=== PATIENT | female | born 1985 | race American Indian/Alaskan Native ===

== ENCOUNTER 2021-11-01 19:01 | Emergency (ER) | payer MEDICAID ==
[2021-11-01 19:58] VITALS: BP 107/63
--- NOTE | 2021-11-01 20:56 | Emergency Department Report ---
ED General Adult HPI - General Chief complaint: Medical Clearance Stated complaint: LT BREAST PAIN Source: patient Mode of arrival: Ambulatory Limitations: No Limitations - History of Present Illness Initial comments: Patient is a A0 35-year-old -Cub[place] female who is approximately 15 weeks gestation presents to the ED with complaint of acute onset persistent painful, swollen, mild erythematous maculopapular rash on left breast for the last 2 weeks, worse in the last 4 days. Patient states that the pain is constant and persistent and that the swelling has worsened. She denies dizziness, syncope, fever, chills, nausea, vomiting, chest pain or shortness of breath or abdominal pain, traumatic injury, vaginal bleeding or vaginal discharge. MD Complaint: left breast swelling, pain erythematous rash -: week(s) (2) Location: chest (left breast) Radiation: non-radiation Severity scale (0 -10): 8 Quality: aching, sharp Consistency: constant Improves with: none Worsens with: none Associated Symptoms: denies other symptoms, rash (Painful, swollen, erythematous maculopapular rash on left breast). denies: confusion, chest pain, diaphoresis, fever/chills, headaches, loss of appetite, nausea/vomiting, seizure - Related Data Previous Rx's Medication Instructions Recorded Last Taken Type Acetaminophen [Tylenol] 500 mg PO Q6HR PRN #40 tablet 11/01/21 Unknown Rx Clindamycin [Clindamycin CAP] 300 mg PO Q6H #40 cap 11/01/21 Unknown Rx Allergies Allergy/AdvReac Type Severity Reaction Status Date / Time No Known Allergies Allergy Verified 11/01/21 19:59 ED Review of Systems ROS: Stated complaint: LT BREAST PAIN Other details as noted in HPI Constitutional: denies: chills, fever Eyes: denies: eye pain, eye discharge, vision change ENT: denies: ear pain, throat pain Respiratory: denies: cough, shortness of breath, wheezing Cardiovascular: denies: chest pain, palpitations Endocrine: no symptoms reported Gastrointestinal: denies: abdominal pain, nausea, vomiting, diarrhea Genitourinary: denies: urgency, dysuria, discharge Musculoskeletal: denies: back pain, joint swelling, arthralgia Skin: rash (Swollen, painful, mild erythematous maculopapular rash on left breast), change in color. denies: lesions, change in hair/nails, pruritus Neurological: denies: headache, weakness, paresthesias Psychiatric: denies: anxiety, depression Hematological/Lymphatic: denies: easy bleeding, easy bruising ED Past Medical Hx - Medications Home Medications: Home Medications Medication Instructions Recorded Confirmed Last Taken Type Acetaminophen [Tylenol] 500 mg PO Q6HR PRN #40 tablet 11/01/21 Unknown Rx Clindamycin [Clindamycin CAP] 300 mg PO Q6H #40 cap 11/01/21 Unknown Rx ED Physical Exam - General Limitations: No Limitations General appearance: alert, in no apparent distress - Head Head exam: Present: atraumatic, normocephalic, normal inspection - Eye Eye exam: Present: normal appearance, PERRL, EOMI Pupils: Present: normal accommodation - ENT ENT exam: Present: normal exam, normal orophraynx, mucous membranes moist, TM's normal bilaterally, normal external ear exam - Neck Neck exam: Present: normal inspection, full ROM. Absent: tenderness - Respiratory Respiratory exam: Present: normal lung sounds bilaterally, chest wall tenderness (Left-sided left breast pain due to erythematous maculopapular rash). Absent: respiratory distress, wheezes, rales, rhonchi, accessory muscle use, decreased breath sounds, prolonged expiratory - Cardiovascular Cardiovascular Exam: Present: normal rhythm, tachycardia, normal heart sounds. Absent: systolic murmur, diastolic murmur, rubs, gallop - GI/Abdominal GI/Abdominal exam: Present: soft, normal bowel sounds. Absent: tenderness, guarding, rebound, hyperactive bowel sounds, hypoactive bowel sounds, organomegaly, mass - Extremities Exam Extremities exam: Present: normal inspection, full ROM, normal capillary refill. Absent: tenderness, pedal edema, joint swelling - Back Exam Back exam: Present: normal inspection, full ROM. Absent: tenderness, CVA tenderness (R), CVA tenderness (L), muscle spasm, paraspinal tenderness, vertebral tenderness - Neurological Exam Neurological exam: Present: alert, oriented X3, CN II-XII intact, normal gait, reflexes normal - Psychiatric Psychiatric exam: Present: normal affect, normal mood - Skin Skin exam: Present: warm, dry, intact, rash (Swollen, mild erythematous maculopapular nonfluctuant tender rash on left breast), erythema. Absent: normal color ED Course Vital Signs 11/01/21 19:55 Temperature 98 F Pulse Rate 102 H Respiratory 18 Rate Blood Pressure 107/63 [Left] O2 Sat by Pulse 99 Oximetry ED Medical Decision Making - Medical Decision Making This is a A0 35-year-old -Cub[place] female who is approximately 15 weeks gestation presents to the ED with complaint of acute onset persistent painful, swollen, mild erythematous maculopapular rash on left breast for the last 2 weeks, worse in the last 4 days. Patient states that the pain is constant and persistent and that the swelling has worsened. In the ED, patient is alert and oriented x3 and is not in any distress. Patient is hemodynamically stable. Patient was discharged home on medications based on the history and physical exam findings of acute mastitis of the left breast or cellulitis of left breast. Patient was advised to follow-up with her primary care physician in 7 to 10 days for reevaluation or return to the ED immediately if symptoms get worse. - Differential Diagnosis Cellulitis; mastitis; cutaneous abscess; folliculitis Critical care attestation.: If time is entered above; I have spent that time in minutes in the direct care of this critically ill patient, excluding procedure time. ED Disposition Clinical Impression: Acute mastitis of left breast, Cellulitis of left breast Disposition: HOME / SELF CARE / HOMELESS Is pt being admited?: No Does the pt Need Aspirin: No Condition: Stable Instructions: Mastitis, [id number], Cellulitis, Adult, [id number] Additional Instructions: Take medication with food, drink plenty of fluids, follow-up with your primary care physician in 7 to 10 days for reevaluation. Return to the ED immediately if symptoms get worse. Prescriptions: Acetaminophen [Tylenol] 500 mg PO Q6HR PRN #40 tablet PRN Reason: Pain , Severe (7-10) Clindamycin [Clindamycin CAP] 300 mg PO Q6H #40 cap Referrals: [facility] [Provider Group] - 7-10 days Time of Disposition: 20:56 Print Language: INDONESIAN
== END 2021-11-01 21:34 | disposition home or self-care (01) ==
LOC: ED 19:01
DX: O91.212 Nonpurulent mastitis associated with pregnancy, second trimester (principal); O91.112 Abscess of breast associated with pregnancy, second trimester
CPT/HCPCS: 99283

== ENCOUNTER 2021-11-05 12:28 | Inpatient (IN) | payer MEDICAID ==
[2021-11-05] MEDS ORDERED: MAGNESIUM HYDROXIDE (MOM) ORAL LIQD UDC PO PRN (13:14)
[2021-11-05] MEDS ORDERED: oxyCODONE /ACETAMINOPHEN 5-325MG TAB PO PRN (13:14)
[2021-11-05] MEDS ORDERED: ALUM-MAG HYDROXIDE-SIMETHICONE 200-200-20MG/5ML ORAL LIQD 30 ML PO PRN (13:14)
[2021-11-05] MEDS: D5W/0.45% NACL 1,000 ML IV SCH (17:04)
[2021-11-05 17:09] LABS: Basophils # (Auto) 0.1 K/mm3 (0.0-0.1); Basophils % (Auto) 0.7 % (0.0-1.8); Eosinophils # (Auto) 0.2 K/mm3 (0.0-0.4); Eosinophils % (Auto) 0.9 % (0.0-4.3); Hematocrit 33.3 % (30.3-42.9); Hemoglobin 10.9 gm/dl (10.1-14.3); Lymphocytes # (Auto) 2.6 K/mm3 (1.2-5.4); Mean Corpuscular HGB Conc 33 % (30-34); Mean Corpuscular Volume 82 fl (79-97); Monocytes % (Auto) 5.5 % (0.0-7.3); Platelet Count 356 K/mm3 (140-440); Red Blood Count 4.09 M/mm3 (3.65-5.03); Red Cell Distribution Width 14.5 % (13.2-15.2)
[2021-11-05 17:16] LABS: Blood Urea Nitrogen 4 mg/dL (7-17); Calcium 9.3 mg/dL (8.4-10.2); Hemolysis Index 2
--- NOTE | 2021-11-05 17:16 | History and Physical Report ---
History of Present Illness Date of examination: 11/05/21 Date of admission: 11/05/21 14:35 History of present illness: This is a 35 years old female who presents with breast mass. The problem began 1 week ago. Patient states was seen in ER this past weekend and given antibiotic but the mass and pain have worsen. She complains of breast mass, breast pain, redness, swelling, tenderness and clear nipple discharge, but denies bloody nipple discharge. The patient denies fever, chills, history of trauma, nausea, inverted nipple and swollen glands. Risk factors for breast mass include prior breast mass. Past History : 6 Term Births: 5 Premature Births: 0 Living Children: 5 Para: 5 Mult. Births: 0 Prev : 0 Aborta: 0 Elect. Ab: 0 Spont. Ab: 0 Ectopics: 0 # 1 Delivery date: 09/11/2010 Weeks Gestation: 38 labor: no Delivery type: Hours of labor: 24 Anesthesia type: epidural Delivery location: [place] [facility] Sex: Male weight: 5-8 # 2 Delivery date: 02/16/2015 Weeks Gestation: 39 labor: no Delivery type: Hours of labor: 24 Anesthesia type: epidural Delivery location: [place] [facility] Sex: Male weight: 6-14 # 3 Delivery date: 07/10/2016 Weeks Gestation: 40 labor: no Delivery type: Hours of labor: 8 Anesthesia type: epidural Delivery location: [place] [facility] Sex: Female weight: 7-3 # 4 Delivery date: 09/23/2018 Weeks Gestation: 41 labor: no Delivery type: Hours of labor: 8 Anesthesia type: epidural Delivery location: [place] Sex: Female weight: 6-7 # 5 Delivery date: 05/05/2020 Weeks Gestation: 40 labor: no Delivery type: Hours of labor: 8 Anesthesia type: epidural Delivery location: [place] Sex: Female weight: 6-14 Comments: Osiel balloon placed. Was told that hemorrhage was borderline. Current Allergies: No known allergies Past Medical History: Right breast fibroadenoma. Left galactocele hemorrhage Past Surgical History: negative Family History Summary: First Degree Blood Relative - Has No Known Family History - Entered On: 10/21/2021 Social History: Patient is single Smoking History: Patient has never smoked. Risk Factors Seatbelt use: preg-psychosocial rehabilitation counselor % [employer] History Uterine Surgery (not C/S): negative Operations: negative Anesthesia Complications: negative Abnormal PAP: negative Uterine Anomaly: negative TATIANA Exposure: negative Infertility: negative Infection History HIV Risk Eval: no TB exposure: no Personal hx. of genital herpes: no Partner hx. of genital herpes: no Hx of STD: none Review of Systems Breast Complains of breast pain and breast enlargement. Past History Past Medical History: other (See HPI) Past Surgical History: No surgical history Social history: full code, other (See HPI) Family history: other (See HPI) Medications and Allergies Allergies Allergy/AdvReac Type Severity Reaction Status Date / Time No Known Allergies Allergy Verified 11/01/21 19:59 Home Medications Medication Instructions Recorded Confirmed Last Taken Type Acetaminophen [Tylenol] 500 mg PO Q6HR PRN #40 tablet 11/01/21 Unknown Rx Clindamycin [Clindamycin CAP] 300 mg PO Q6H #40 cap 11/01/21 Unknown Rx Active Meds: Active Medications Acetaminophen (Acetaminophen 325 Mg Tab) 650 mg PO Q4H PRN PRN Reason: Pain MILD(1-3)/Fever >100.5/JUAREZ Al Hydrox/Mg Hydrox/Simethicone (Alum-Mag Hydroxide-Simethicone [id number]/5ml Oral Liqd 30 Ml) 30 ml PO Q4H PRN PRN Reason: Indigestion Docusate Sodium (Docusate Sodium 100 Mg Cap) 100 mg PO BID BENJI Dextrose/Sodium Chloride (D5/0.45ns) 1,000 mls @ 125 mls/hr IV DIRECT BENJI Last Admin: 11/05/21 17:04 Dose: 125 mls/hr Clindamycin HCl (Cleocin 900 Mg/50 Ml) 900 mg in 50 mls @ 100 mls/hr IV Q8H BENJI; Protocol Last Admin: 11/05/21 17:04 Dose: 100 mls/hr Magnesium Hydroxide (Magnesium Hydroxide (Mom) Oral Liqd Udc) 30 ml PO Q4H PRN PRN Reason: Constipation Oxycodone/Acetaminophen (Oxycodone /Acetaminophen 5-325mg Tab) 1 tab PO Q6H PRN PRN Reason: Pain, Moderate (4-6) Sodium Chloride (Sodium Chloride 0.9% 10 Ml Flush Syringe) 10 ml IV BID BENJI Sodium Chloride (Sodium Chloride 0.9% 10 Ml Flush Syringe) 10 ml IV PRN PRN PRN Reason: LINE FLUSH Review of Systems All systems: negative Breasts: swelling, mass, pain, tender Exam - Physical Exam Narrative exam: HEENT: normocephalic, no lesions or deformities Skin no significant abnormal lesions or rashes Chest: respiratory effort normal, Breasts: Left breast invoving nipple erythematous fluctuant tender CV: regular, Abdomen: normal bowel sounds, soft, nontender, no HSM Neuro: no gross anomalities Extremities: no clubbing, cyanosis, or edema - Extremities Extremities: no ischemia - Integumentary Integumentary: Present: clear, warm, dry Assessment and Plan - Patient Problems (1) Breast abscess during , antepartum Current Visit: No Status: Acute Plan to address problem: Patient is failed outpatient therapy. Will admit for inpatient IV antibiotics we will obtain a breast ultrasound to evaluate for possible surgical drainage. (2) 15 weeks gestation of Current Visit: No Status: Acute (3) BMI 35.0-35.9,adult Current Visit: No Status: Chronic
[2021-11-05] MEDS: ACETAMINOPHEN 325 MG TAB PO PRN ×2 (17:33→21:23)
[2021-11-05 17:37] LABS: BUN/Creatinine Ratio 10
[2021-11-05] MEDS: DOCUSATE SODIUM 100 MG CAP PO SCH (21:20)
[2021-11-06] MEDS: ACETAMINOPHEN 325 MG TAB PO PRN ×5 (02:27→22:39)
[2021-11-06] MEDS: D5W/0.45% NACL 1,000 ML IV SCH ×2 (05:06→18:33)
--- NOTE | 2021-11-06 06:11 | Progress Note ---
Assessment and Plan A: 35 y.o. @ 15 + wks, breast abscess. - Patient Problems (1) 15 weeks gestation of Current Visit: No Status: Acute Plan to address problem: Continue to obtain FHR q day. (2) Acute mastitis of left breast Current Visit: No Status: Acute (3) Breast abscess during , antepartum Current Visit: No Status: Acute Plan to address problem: Continue with antibiotics. Culture of drainage sent to lab. Will consult ID for recommendations. Monitor maternal temperature. (4) Cellulitis of left breast Current Visit: No Status: Acute Subjective - Subjective Date of service: 11/06/21 Principal diagnosis: IUP @ 15+ wks, breast abscess Interval history: Pt denies heavy vaginal bleeding, abdominal pain/cramping. States that the abscess from the left breast started to drain earlier this AM. Patient reports: contractions, no new complaints, no loss of fluid, no vaginal bleeding Objective - Vital Signs Vital Signs: Vital Signs - 12hr 11/05/21 11/05/21 11/06/21 20:12 22:00 00:44 Temperature 98.0 F 98.3 F Pulse Rate 96 H 91 H Respiratory 18 18 Rate Blood Pressure 110/64 113/58 O2 Sat by Pulse 94 94 97 Oximetry 11/06/21 11/06/21 04:40 04:41 Temperature 98.3 F Pulse Rate Respiratory 18 Rate Blood Pressure 89/59 O2 Sat by Pulse Oximetry - Exam Narrative Exam: Dressing has been applied to the left breast. A large amount of serosanguineous drainage on the dressing with an odor noted coming from left breast right above the nipple. Cardiovascular: Regular rate Lungs: Normal air movement Abdomen: Present: normal appearance, soft FHR: other (FHR + per RN shift report. ) - Labs Labs: Abnormal Labs 11/05/21 11/05/21 16:20 16:20 WBC 17.3 H MCH 27 L [place] # (Auto) 1.0 H Seg Neutrophils % 77.9 H Seg Neutrophils # 13.5 H Carbon Dioxide 21 L BUN 4 L Creatinine 0.4 L Laboratory Results - last 24 hr 11/05/21 11/05/21 16:20 16:20 WBC 17.3 H RBC 4.09 Hgb 10.9 Hct 33.3 MCV 82 MCH 27 L MCHC 33 RDW 14.5 Plt Count 356 Lymph % (Auto) 15.0 [place] % (Auto) 5.5 Eos % (Auto) 0.9 Baso % (Auto) 0.7 Lymph # (Auto) 2.6 [place] # (Auto) 1.0 H Eos # (Auto) 0.2 Baso # (Auto) 0.1 Seg Neutrophils % 77.9 H Seg Neutrophils # 13.5 H Sodium 138 Potassium 3.8 Chloride 104.6 Carbon Dioxide 21 L Anion Gap 16 BUN 4 L Creatinine 0.4 L Estimated GFR > 60 BUN/Creatinine Ratio 10 Glucose 80 Calcium 9.3
--- NOTE | 2021-11-06 09:45 | Ultrasound Report ---
ULTRASOUND BREAST LEFT LIMITED, 11/06/2021 CLINICAL INFORMATION / INDICATION: The patient reports pain, redness and swelling of the left breast. She is currently on antibiotic therapy. TECHNIQUE: Targeted ultrasound evaluation was performed of the area of interest. COMPARISON: None. FINDINGS: Sonographic evaluation of the left retroareolar breast in the patient's area of clinical concern demo nstrates a hypoechoic mass with indistinct somewhat angular margins measuring 2.8 x 2.5 cm. There is moderate peripheral associated vascularity and soft tissue edema. IMPRESSION: 1. Irregular left retroareolar mass. It is difficult to determine if this represents a solid mass or a fluid collection containing debris. Given the patient's clinical circumstances, findings are favor ed to represent abscess. Recommend short-term sonographic and clinical follow-up to ensure that this resolves. If this mass does not resolve, then ultrasound-guided biopsy is recommended to exclude neop lasm. Follow up recommendation: Surgical consult BI-RADS Category 3: PROBABLY BENIGN. Followup in 3 months. A normal or "negative" report should not preclude biopsy or follow-up of a clinically suspicious find ing. Signer Name: Whit Jones MD Signed: 11/06/2021 9:40 AM Workstation Name: [email or web address]
[2021-11-06] MEDS: DOCUSATE SODIUM 100 MG CAP PO SCH ×2 (09:56→21:21)
--- NOTE | 2021-11-06 12:41 | Consultation ---
History of Present Illness Consult date: 11/06/21 Requesting physician: ROCÍO PRESCOTT - History of present illness History of present illness: This is a 35 years old female who presents with breast mass. The problem began 1 week ago. Patient states was seen in ER this past weekend and given antibiotic but the mass and pain have worsen. She complains of breast mass, [place] ast pain, redness, swelling, tenderness and clear nipple discharge, but denies bloody nipple discharge. The patient denies fever, chills, history of trauma, nausea, inverted nipple and swollen glands. Risk factors for breast mass include prior breast mass. Pt with neg fh of breast ca, ov ca or uterine ca. US of breast done and images reviewed. A 2.8cm abscess is seen under the upper half of the NAC. Pt is curently on cleocin. ID consult is pending. Past History Past Medical History: other (See HPI) Past Surgical History: No surgical history Social history: full code, other (See HPI) Family history: other (See HPI) Medications and Allergies Allergies Allergy/AdvReac Type Severity Reaction Status Date / Time No Known Allergies Allergy Verified 11/01/21 19:59 Home Medications Medication Instructions Recorded Confirmed Last Taken Type Acetaminophen [Tylenol] 500 mg PO Q6HR PRN #40 tablet 11/01/21 Unknown Rx Clindamycin [Clindamycin CAP] 300 mg PO Q6H #40 cap 11/01/21 Unknown Rx Active Meds: Active Medications Acetaminophen (Acetaminophen 325 Mg Tab) 650 mg PO Q4H PRN PRN Reason: Pain MILD(1-3)/Fever >100.5/JUAREZ Last Admin: 11/06/21 09:56 Dose: 650 mg Al Hydrox/Mg Hydrox/Simethicone (Alum-Mag Hydroxide-Simethicone [id number]/5ml Oral Liqd 30 Ml) 30 ml PO Q4H PRN PRN Reason: Indigestion Docusate Sodium (Docusate Sodium 100 Mg Cap) 100 mg PO BID BENJI Last Admin: 11/06/21 09:56 Dose: 100 mg Dextrose/Sodium Chloride (D5/0.45ns) 1,000 mls @ 125 mls/hr IV DIRECT BENJI Last Admin: 11/06/21 05:06 Dose: 125 mls/hr Clindamycin HCl (Cleocin 900 Mg/50 Ml) 900 mg in 50 mls @ 100 mls/hr IV Q8H BENJI; Protocol Last Admin: 11/06/21 05:06 Dose: 100 mls/hr Magnesium Hydroxide (Magnesium Hydroxide (Mom) Oral Liqd Udc) 30 ml PO Q4H PRN PRN Reason: Constipation Oxycodone/Acetaminophen (Oxycodone /Acetaminophen 5-325mg Tab) 1 tab PO Q6H PRN PRN Reason: Pain, Moderate (4-6) Sodium Chloride (Sodium Chloride 0.9% 10 Ml Flush Syringe) 10 ml IV BID [facility] Last Admin: 11/05/21 21:20 Dose: 10 ml Sodium Chloride (Sodium Chloride 0.9% 10 Ml Flush Syringe) 10 ml IV PRN PRN PRN Reason: LINE FLUSH Exam Vital Signs Temp Pulse Resp BP Pulse Ox 98.0 F 93 H 18 108/67 100 11/05/21 16:45 11/05/21 16:45 11/05/21 16:45 11/05/21 16:45 11/05/21 16:45 Results - Labs 11/05/21 16:20 11/05/21 16:20 Abnormal lab results 11/05/21 11/05/21 Range/Units 16:20 16:20 WBC 17.3 H (4.5-11.0) K/mm3 MCH 27 L (28-32) pg [place] # (Auto) 1.0 H (0.0-0.8) K/mm3 Seg Neutrophils % 77.9 H (40.0-70.0) % Seg Neutrophils # 13.5 H (1.8-7.7) K/mm3 Carbon Dioxide 21 L (22-30) mmol/L BUN 4 L (7-17) mg/dL Creatinine 0.4 L (0.6-1.2) mg/dL Diabetes panel 11/05/21 Range/Units 16:20 Sodium 138 (137-145) mmol/L Potassium 3.8 (3.6-5.0) mmol/L Chloride 104.6 (98-107) mmol/L Carbon Dioxide 21 L (22-30) mmol/L BUN 4 L (7-17) mg/dL Creatinine 0.4 L (0.6-1.2) mg/dL Glucose 80 (65-100) mg/dL Calcium 9.3 (8.4-10.2) mg/dL Calcium panel 11/05/21 Range/Units 16:20 Calcium 9.3 (8.4-10.2) mg/dL Pituitary panel 11/05/21 Range/Units 16:20 Sodium 138 (137-145) mmol/L Potassium 3.8 (3.6-5.0) mmol/L Chloride 104.6 (98-107) mmol/L Carbon Dioxide 21 L (22-30) mmol/L BUN 4 L (7-17) mg/dL Creatinine 0.4 L (0.6-1.2) mg/dL Glucose 80 (65-100) mg/dL Calcium 9.3 (8.4-10.2) mg/dL Adrenal panel 11/05/21 Range/Units 16:20 Sodium 138 (137-145) mmol/L Potassium 3.8 (3.6-5.0) mmol/L Chloride 104.6 (98-107) mmol/L Carbon Dioxide 21 L (22-30) mmol/L BUN 4 L (7-17) mg/dL Creatinine 0.4 L (0.6-1.2) mg/dL Glucose 80 (65-100) mg/dL Calcium 9.3 (8.4-10.2) mg/dL Assessment and Plan Left breast abscess with spontaneous drainage thru the NAC. Would begin warm soaks to encourage complete drainage of the abscessthe the opeing. Cont antibiotics as needed.
--- NOTE | 2021-11-06 12:49 | Event Note ---
Date: 11/06/21 Patient discussed with both ID and Gen Surg. ID will be coming in to evaluate patient and make recs. Gen Surg, Dr. Bean, has evaluated patient. Does not recommend surgical intervention at this time, especially since abscess has started to spontaneously drained. Recommends continued antibiotics and warm soaks three times daily to encourage further drainage.
[2021-11-07] MEDS: D5W/0.45% NACL 1,000 ML IV SCH (04:54)
[2021-11-07] MEDS: ACETAMINOPHEN 325 MG TAB PO PRN ×3 (04:55→20:21)
--- NOTE | 2021-11-07 05:52 | Progress Note ---
Assessment and Plan A: 35 y.o. @ 15 + wks, Left breast abscess. - Patient Problems (1) 15 weeks gestation of Current Visit: No Status: Acute Plan to address problem: Monitor for s/sx of SAB while admitted. (2) Acute mastitis of left breast Current Visit: No Status: Acute (3) Breast abscess during , antepartum Current Visit: No Status: Acute Plan to address problem: General surgery recommendations: - No surgery recommended at this time. - Continue with antibiotics. - Warm soaks to left breast. Has not been seen by ID yet. - ID to be called today. Continue to monitor maternal temperatures. (4) Cellulitis of left breast Current Visit: No Status: Acute Subjective - Subjective Date of service: 11/07/21 Principal diagnosis: IUP @ 15+ wks, breast abscess Interval history: Pt denies heavy vaginal bleeding, abdominal pain/cramping. Feeling better. States left breast is draining less and has no odor. Patient reports: contractions, no new complaints, no loss of fluid, no vaginal bleeding Objective - Vital Signs Vital Signs: Vital Signs - 12hr 11/06/21 11/06/21 11/06/21 18:32 20:21 22:00 Temperature Pulse Rate 73 Respiratory 16 18 Rate Blood Pressure 108/63 Blood Pressure [Left] O2 Sat by Pulse 99 99 Oximetry 11/07/21 11/07/21 00:00 04:00 Temperature 98.6 F 98.4 F Pulse Rate 77 71 Respiratory 18 18 Rate Blood Pressure Blood Pressure 121/72 123/75 [Left] O2 Sat by Pulse Oximetry - Exam Breasts: discharge (No odor noted today. Less drainage. ), other (Two open areas noted on inside of left nipple. ) Cardiovascular: Regular rate Lungs: Normal air movement Abdomen: Present: normal appearance, soft FHR: auscultation normal (+ FHR) Extremities: normal - Labs Labs: Abnormal Labs 11/05/21 11/05/21 16:20 16:20 WBC 17.3 H MCH 27 L [place] # (Auto) 1.0 H Seg Neutrophils % 77.9 H Seg Neutrophils # 13.5 H Carbon Dioxide 21 L BUN 4 L Creatinine 0.4 L
[2021-11-07] MEDS: DOCUSATE SODIUM 100 MG CAP PO SCH ×2 (09:16→22:32)
--- NOTE | 2021-11-07 09:16 | Progress Note ---
Assessment and Plan pt actively expressing pus thru open areas in the NAC. US images and report reviewed. Images may be underestimating size of the abscess. On exam area of induration is almast 8cm across. pt is encourages todoshowers and warmsoakes 4-5 times a day totry to decompress the abscess thru the open areas. OK tochange to po antibiotics. Would appreciate ID input inlight of gnr and gpc on gram stain and that pt is just beginning her 2nd trimester of . Pt can be managed at home with po antibiotics and wound car. Fu withme as an out pt. Subjective Date of service: 11/07/21 Patient Reports: Positive: feels better Narrative: pt actively expressing pus thru open areas in the NAC. US images and report reviewed. Images may be underestimating size of the abscess. On exam area of induration is almast 8cm across. pt is encourages todoshowers and warmsoakes 4-5 times a day totry to decompress the abscess thru the open areas. OK tochange to po antibiotics. Would appreciate ID input inlight of gnr and gpc on gram stain and that pt is just beginning her 2nd trimester of . Pt can be managed at home with po antibiotics and wound car. Fu withme as an outpt. Objective Vital Signs - 12hr 11/06/21 11/07/21 11/07/21 22:00 00:00 04:00 Temperature 98.6 F 98.4 F Pulse Rate 77 71 Respiratory 18 18 Rate Blood Pressure 121/72 123/75 [Left] O2 Sat by Pulse 99 Oximetry - Labs 11/05/21 16:20 11/05/21 16:20
--- NOTE | 2021-11-07 17:26 | Consultation ---
History of Present Illness - Reason for Consult Consult date: 11/07/21 - History of Present Illness 35-year-old female past medical history G6, P5 presented to hospital complaining of a breast mass that began 1 week prior to admission. She had been given an outpatient antibiotic however her symptoms continue to worsen. She complains of pain, redness, swelling, discharge. She denies bloody discharge. She is found to have an abscess, and surgery was consulted. However he has this began to spontaneously drain, and/no surgeries planned Afebrile, white count elevated 17.3. Left breast wound culture pending gram- positive cocci in pairs currently on clindamycin, Review of Systems: Bold if positive, otherwise negative General: fevers, chills, rigors HEENT: visual disturbance, diplopia, eye pain Respiratory: cough, sputum, hemoptysis, shortness of breath Cardiovascular: chest pain, syncope Gastrointestinal: nausea, vomiting, diarrhea, abdominal pain Genitourinary: dysuria, hematuria, flank pain Musculoskeletal: neck pain, back pain, joint pain, edema Neurologic: headaches, seizures Hematologic: easy bruising or bleeding Endocrine: night sweats, acute weight loss Skin: rash, jaundice, redness Psychiatric: suicidal, homicidal ideation Past History Past Medical History: other (See HPI) Past Surgical History: No surgical history Social history: full code, other (See HPI) Family history: other (See HPI) Medications and Allergies Allergies Allergy/AdvReac Type Severity Reaction Status Date / Time No Known Allergies Allergy Verified 11/01/21 19:59 Home Medications Medication Instructions Recorded Confirmed Last Taken Type Acetaminophen [Tylenol] 500 mg PO Q6HR PRN #40 tablet 11/01/21 Unknown Rx Clindamycin [Clindamycin CAP] 300 mg PO Q6H #40 cap 11/01/21 Unknown Rx Active Meds: Active Medications Acetaminophen (Acetaminophen 325 Mg Tab) 650 mg PO Q6H PRN PRN Reason: Pain MILD(1-3)/Fever >100.5/JUAREZ Al Hydrox/Mg Hydrox/Simethicone (Alum-Mag Hydroxide-Simethicone [phone]/5ml Oral Liqd 30 Ml) 30 ml PO Q4H PRN PRN Reason: Indigestion Docusate Sodium (Docusate Sodium 100 Mg Cap) 100 mg PO BID BENJI Last Admin: 11/07/21 09:16 Dose: 100 mg Dextrose/Sodium Chloride (D5/0.45ns) 1,000 mls @ 125 mls/hr IV DIRECT BENJI Last Admin: 11/07/21 04:54 Dose: 125 mls/hr Clindamycin HCl (Cleocin 900 Mg/50 Ml) 900 mg in 50 mls @ 100 mls/hr IV Q8H BENJI; Protocol Last Admin: 11/07/21 13:27 Dose: 100 mls/hr Magnesium Hydroxide (Magnesium Hydroxide (Mom) Oral Liqd Udc) 30 ml PO Q4H PRN PRN Reason: Constipation Oxycodone/Acetaminophen (Oxycodone /Acetaminophen 5-325mg Tab) 1 tab PO Q6H PRN PRN Reason: Pain, Moderate (4-6) Sodium Chloride (Sodium Chloride 0.9% 10 Ml Flush Syringe) 10 ml IV BID BENJI Last Admin: 11/06/21 21:21 Dose: 10 ml Sodium Chloride (Sodium Chloride 0.9% 10 Ml Flush Syringe) 10 ml IV PRN PRN PRN Reason: LINE FLUSH Physical Examination - Physical Exam Narrative exam: Physical Exam: Constitutional: Alert, cooperative. No acute distress Head, Ears, Nose: Normocephalic, atraumatic. External ears, nose normal Eyes: Conjunctivae/corneas clear. No icterus. No ptosis. Neck: Supple, no meningeal signs Oral: dentition fair, no thrush Cardiovascular: S1, S2 normal. Respiratory: Good air entry, clear to auscultation bilaterally GI: Soft, non-tender; bowel sounds normal. No peritoneal signs. Musculoskeletal: No pedal edema, no cyanosis. Skin: No rash or abscess Hem/Lymphatic: No palpable cervical or supraclavicular nodes. No lymphangitis Psych: Mood ok. Affect normal Neurological: Awake, alert, oriented. No gross abnormality - Constitutional Vitals: Vital Signs Temp Pulse Resp BP Pulse Ox 98.1 F 66 20 99/51 99 11/07/21 11:42 11/07/21 11:42 11/07/21 11:42 11/07/21 11:42 11/07/21 11:42 Temperature -Last 24 Hours Temperature 98.1 F Temperature 98.4 F Temperature 98.6 F Results - Labs CBC & Chem 7: 11/05/21 16:20 11/05/21 16:20 Assessment and Plan Cultures: Wound culture: Pending. Gram stain with gram-positive cocci in pairs A/P: 35-year-old female now with #Left breast abscess: Spontaneously draining, wound culture as above. It is finalized as a strep or MSSA, would recommend discharge with Keflex. Recs: -Continue vancomycin for now -If cultures finalized with MSSA or strep would discharge with Keflex 500 mg every 6 hours for 10 days -Cultures finalized with MRSA we discharged with clindamycin morning 450 mg every 8 hours for 10 days -Warm compresses to encourage drainage Thank you for the consult, we will continue to follow. Eri Gaytan MD [facility] ([facility] O: [phone] F: [phone]
[2021-11-08] MEDS: ACETAMINOPHEN 325 MG TAB PO PRN ×2 (04:19→10:25)
--- NOTE | 2021-11-08 07:37 | Progress Note ---
Assessment and Plan A: 35 y.o. @ 15 + wks, with left breast abscess. - Patient Problems (1) 15 weeks gestation of Current Visit: No Status: Acute (2) Acute mastitis of left breast Current Visit: No Status: Acute (3) Breast abscess during , antepartum Current Visit: No Status: Acute Plan to address problem: Still waiting for final microbiology before discharge home. Continue with warm soaks to left breast. Recommendations from ID: -Continue vancomycin for now -If cultures finalized with MSSA or strep would discharge with Keflex 500 mg every 6 hours for 10 days -Cultures finalized with MRSA we discharged with clindamycin morning 450 mg every 8 hours for 10 days -Warm compresses to encourage drainage Surgery recommendations: - Surgery not needed at this time. - To follow up with Dr. Bean outpatient. - Warm soaks 4-5 X per day. (4) Cellulitis of left breast Current Visit: No Status: Acute Subjective - Subjective Date of service: 11/08/21 (Pt is very anxious to go home. ) Principal diagnosis: IUP @ 15+ wks, breast abscess Interval history: Pt denies heavy vaginal bleeding, abdominal pain/cramping. Feeling better. Warm compresses have been helpful. States left breast is draining less and has no odor. Pt is very anxious to go home. States that her has to work today. We discussed that we are waiting for the culture to result. This result will give the team a better idea of what antibiotics that she will need to go home on. Pt verbalized understanding. Patient reports: contractions, no new complaints, no loss of fluid, no vaginal bleeding Objective - Vital Signs Vital Signs: Vital Signs - 12hr 11/07/21 11/07/21 11/08/21 20:14 20:21 01:00 Temperature 98.4 F 97.7 F Pulse Rate 76 70 Respiratory 18 18 18 Rate Blood Pressure 115/60 95/60 O2 Sat by Pulse 97 99 Oximetry 11/08/21 04:19 Temperature Pulse Rate Respiratory 18 Rate Blood Pressure O2 Sat by Pulse Oximetry - Exam Breasts: discharge (Minimal noted today. ), other (Two open area on left nipple with no drainage noted. Dressing to left breast with no drainage noted. ) Abdomen: Present: normal appearance, soft FHR: auscultation normal (+ FHR) Extremities: normal - Labs Labs: Abnormal Labs 11/05/21 11/05/21 16:20 16:20 WBC 17.3 H MCH 27 L Archer # (Auto) 1.0 H Seg Neutrophils % 77.9 H Seg Neutrophils # 13.5 H Carbon Dioxide 21 L BUN 4 L Creatinine 0.4 L
[2021-11-08] MEDS: DOCUSATE SODIUM 100 MG CAP PO SCH (10:26)
--- NOTE | 2021-11-08 12:06 | Event Note ---
Date: 11/08/21 Cultures remain no growth so far. If they finalize negative, DC with Keflex 500mg q6h x10 days. Otherwise, please see recommendations from previous note. Continue clindamycin while inpatient.
--- NOTE | 2021-11-08 12:27 | Discharge Summary ---
Providers - Providers Date of Admission: 11/05/21 14:35 Date of discharge: 11/08/21 Attending physician: SETH JOHNSTON 11/06/21 07:15 Consult to Physician [CONS] Routine Comment: Consulting Provider: MONO HUANG Physician Instructions: please evalute Reason For Exam: breast abscess 11/06/21 07:17 Consult to Physician [CONS] Routine Comment: Consulting Provider: BRE BEAN Physician Instructions: Reason For Exam: breast abscess 11/07/21 12:15 Consult to Case Management [CONS] Routine Services Needed at Discharge: Performance Tester Notified:: yes Phone number called:: [phone] Was contact made?: Yes Time called:: 12:15 Comment:: Out patient follow up with Wound care. Additional Physician Instructions: Resources for wound care follow up. 11/07/21 15:46 Consult to Physician [CONS] Routine Comment: Consulting Provider: GERBER POSADA Physician Instructions: Reason For Exam: breast abscess IUP 15weeks Primary care physician: SOSA MEZA Hospitalization Reason for admission: Left breast abscess Condition: Fair Procedures: General surgery consult, breast ultrasound and infectious disease consult. Patient received IV antibiotics Hospital course: Please see H&P for details. Patient was admitted and started on IV antibiotics. Cultures were obtained from the abscess. Breast ultrasound revealed probable abscess versus solid mass. During the patient's hospitalization she had a spontaneous drainage of the abscess. She was evaluated with Dr. Bean and decision was made to allow to continue with a spontaneous drainage with no surgical intervention. Infectious disease also consulted with the patient and was waiting for final ID of the culture sent. Final ID still not available today. Patient very much desires to go home. She has been afebrile on p.o. medication. Patient currently has clindamycin was treated when she was initially seen in an emergency room. Will discharge patient on clindamycin awaiting final results and recommendation for MRSA. If no MRSA will change patient's antibiotics to Keflex per infectious disease recommendation. The patient is to follow-up with Dr. Castro as an outpatient. And currently has an appointment to follow-up in office scheduled. Disposition: 01 HOME / SELF CARE / HOMELESS Final Discharge Diagnosis (Prints w/discharge instructions): Breast abscess currently - Discharge Diagnoses (1) Breast abscess during , antepartum Status: Acute (2) 15 weeks gestation of Status: Acute (3) BMI 35.0-35.9,adult Status: Chronic Core Measure Documentation - Palliative Care Palliative Care/ Comfort Measures: Not Applicable - Core Measures Any of the following diagnoses?: none Exam - Constitutional Vitals: Temp Pulse Resp BP Pulse Ox 98.0 F 85 18 122/69 98 11/08/21 09:04 11/08/21 09:04 11/08/21 09:04 11/08/21 09:04 11/08/21 09:05 General appearance: Present: no acute distress - Respiratory Respiratory effort: normal - Cardiovascular Rhythm: regular - Extremities Extremities: no ischemia, No edema - Abdominal General gastrointestinal: Present: soft Female genitourinary: Present: deferred - Integumentary Integumentary: Present: clear, warm, dry - Additional findings Additional findings: Left breast much less erythema small amount of drainage present now nontender. Induration much decreased from admission. Plan Activity: advance as tolerated Diet: regular Wound: keep clean and dry, change dressing Additional Instructions: Patient to call office for any fever, chills, nausea, vomiting or pain not controlled by pain medication. Follow up with: SOSA MEZA MD [Primary Care Provider] - 7 Days BRE BEAN MD [Staff Physician] - 7 Days
[2021-11-08 13:29] VITALS: BP 104/59
== END 2021-11-08 13:05 | disposition home or self-care (01) | DRG 782 ==
LOC: UNDOADMIN 12:28 → 3A 12:28 → OB 14:35
PROVIDERS: ADMIT Obstetrics & Gynecology; ATTEND Obstetrics & Gynecology
DX: O91.112 Abscess of breast associated with pregnancy, second trimester (principal); Z3A.15 15 weeks gestation of pregnancy
CPT/HCPCS: 36415; 80048; 85025; 87116; G0378; J7070; J7502